=== PATIENT | female | born 1995 | race Two or more races ===

== ENCOUNTER 2022-06-07 15:18 | Emergency (ER) | payer OTHER ==
[2022-06-07 15:35] VITALS: BP 112/73; PULSE 97; RESP 18; TEMP 98.1; BMI 32.5
== END 2022-06-07 17:03 | disposition home or self-care (01) ==
LOC: JERFT 15:18
PROC: 0HQ1XZZ Repair Face Skin, External Approach (ICD-10-PCS; principal; 2022-06-07)
DX: S01.511A Laceration without foreign body of lip, initial encounter (principal); W22.8XXA Striking against or struck by other objects, initial encounter
CPT/HCPCS: 99282-25

== ENCOUNTER 2022-06-12 11:47 | Emergency (ER) | payer OTHER ==
[2022-06-12 13:16] VITALS: BP 100/68; PULSE 82; RESP 18; TEMP 98.5; BMI 31.1
== END 2022-06-12 13:48 | disposition home or self-care (01) ==
LOC: JER 11:47
DX: Z48.00 Encounter for change or removal of nonsurgical wound dressing (principal)
CPT/HCPCS: 99281-25